=== PATIENT | female | born 1995 | race Caucasian/White ===

== ENCOUNTER 2016-09-02 12:40 | Emergency (ER) | payer OTHER ==
[2016-09-02] MEDS ORDERED: Polymyx/Trimethoprim OPTH* 10 ML BTL RIGHT EYE SCH (13:30)
[2016-09-02 13:52] VITALS: BP 94/54
--- NOTE | 2016-09-02 14:06 | ED ---
Throat Pain/Nasal Congestion - HPI Summary HPI Summary: Patient has a history of conjunctivitis and awoke this morning with her right eye crusted shut with a red sclera. She is a student at [employer] and is not sure if she has come into contact with anyone who has conjunctivitis. She denies trauma to the eye, fever, chills, vision changes or headache. No foreign body sensation. - History of Current Complaint Chief Complaint: EDEyeProblem Time Seen by Provider: 09/02/16 12:57 Hx Obtained From: Patient Onset/Duration: Gradual Onset Severity: Mild Associated Signs And Symptoms: Positive: Negative Cough: None - Allergies/Home Medications Allergies/Adverse Reactions: Allergies Allergy/AdvReac Type Severity Reaction Status Date / Time No Known Allergies Allergy Verified 09/02/16 12:41 PMH/Surg Hx/FS Hx/Imm Hx Previously Healthy: Yes Sensory History: Reports: Hx Contacts or Glasses Opthamlomology History: Reports: Hx Contacts or Glasses Infectious Disease History: No Infectious Disease History: Denies: Traveled Outside the in Last 30 Days - Family History Known Family History: Positive: None - Social History Occupation: Student Lives: Alone Alcohol Use: Rare Substance Use Type: Reports: None Smoking Status (MU): Never Smoked Tobacco Review of Systems Negative: Fever Positive: Drainage - thin yellow, Erythema - right sclera. Negative: Photophobia, Blurred Vision, Diplopia Negative: Headache All Other Systems Reviewed And Are Negative: Yes Physical Exam Triage Information Reviewed: Yes Vital Signs On Initial Exam: Initial Vitals Temp Pulse Resp BP Pulse Ox 98.9 F 90 18 111/70 100 09/02/16 12:41 09/02/16 12:41 09/02/16 12:41 09/02/16 12:41 09/02/16 12:41 Vital Signs Reviewed: Yes Appearance: Positive: Well-Appearing, No Pain Distress, Well-Nourished Skin: Positive: Warm, Skin Color Reflects Adequate Perfusion, Dry, Soft Head/Face: Positive: Normal Head/Face Inspection Eyes: Positive: EOMI, SABINO, Conjunctiva Inflammed - right, Discharge - thin yellow creating crust ENT: Positive: Hearing grossly normal, Pharynx normal Neck: Positive: Supple, Nontender Respiratory/Lung Sounds: Positive: Breath Sounds Present Cardiovascular: Positive: RRR Musculoskeletal: Negative: Edema Left, Edema Right Neurological: Positive: Sensory/Motor Intact, Alert, Oriented to Person Place, Time, NV Bundle Intact Distally Psychiatric: Positive: Affect/Mood Appropriate AVPU Assessment: Alert Diagnostics - Vital Signs Vital Signs Temp Pulse Resp BP Pulse Ox 09/02/16 13:49 65 18 94/54 09/02/16 12:41 98.9 F 90 18 111/70 100 - Laboratory Lab Statement: Any lab studies that have been ordered have been reviewed, and results considered in the medical decision making process. EENT Course/Dx - Differential Diagnoses Differential Diagnoses: Conjunctivitis, Corneal Abrasion, Detached Retina, Hyphema, Keratitis, Periorbital/Orbital Cellulitis, Uveitis - Diagnoses Provider Diagnoses: Conjunctivitis Discharge - Discharge Plan Condition: Stable Disposition: HOME Patient Education Materials: Conjunctivitis (ED) Referrals: DEBBY Henley [Primary Care Provider] - Additional Instructions: Please use the drops provided until your symptoms have been resolved for 24 hours. Follow-up with Debby if your symptoms do not resolve in 3-4 days. Return to the emergency department if your symptoms worsen.
== END 2016-09-02 13:49 | disposition home or self-care (01) ==
LOC: ED 12:40
DX: H10.9 Unspecified conjunctivitis (principal)
CPT/HCPCS: 99282